=== PATIENT | male | born 1975 | race Caucasian/White ===

== ENCOUNTER 2016-07-10 21:53 | Emergency (ER) | payer OTHER ==
[~2016-07-10 21:53] MED LIST: BENADRYL25 MG PO; PREDNISONE20 MG PO
[2016-07-10] MEDS ORDERED: CLARITIN10 M6 PO (22:04)
== END 2016-07-10 22:37 ==
LOC: EDMED 21:53
PROC: 0HQ1XZZ Repair Face Skin, External Approach (ICD-10-PCS; principal; 2016-07-10)
DX: S01.111A Laceration without foreign body of right eyelid and periocular area, initial encounter (principal); W22.8XXA Striking against or struck by other objects, initial encounter; Y92.69 Other specified industrial and construction area as the place of occurrence of the external cause; Y99.0 Civilian activity done for income or pay